=== PATIENT | female | born 1985 | race Caucasian/White ===

== ENCOUNTER 2017-05-03 05:55 | Inpatient (IN) | payer OTHER ==
[~2017-05-03] VITALS: Ht 165.1 cm; Wt 75.3 kg
[~2017-05-03 05:55] MED LIST: PNV1TABL54 PO; RINGERS SOLUTION,LACTATED 1,000 ML IV ONE
[2017-05-03] MEDS ORDERED: CITRIC ACID/SODIUM CITRATE 30 ML SOLUTION UDCUP PO ONE (06:00)
[2017-05-03] MEDS ORDERED: METOCLOPRAMIDE HCL 5 MG/ML 2 ML VIAL IVP ONE (06:00)
[2017-05-03 06:27] LABS: BASOPHILS # (AUTO) 0.02 K/uL (0.00-0.20); BASOPHILS % (AUTO) 0.2 % (0.0-2.0); EOSINOPHILS # (AUTO) 0.04 K/uL (0.00-0.70); EOSINOPHILS % (AUTO) 0.41 % (1.0-6.0); HEMOGLOBIN 12.3 g/dL (12.0-16.0); LYMPHOCYTES # (AUTO) 1.8 K/uL (1.0-4.8); LYMPHOCYTES % (AUTO) 20.9 % (22.0-44.0); MEAN CORPUSCULAR HEMOGLOBIN 32.6 pg (26.0-34.0); MEAN CORPUSCULAR HGB CONC 34.2 G/dL (31.0-37.0); MEAN CORPUSCULAR VOLUME 95 fL (80-100); MONOCYTES # (AUTO) 0.6 K/uL (0.1-1.0); NEUTROPHILS # (AUTO) 6.3 K/uL (1.8-7.7); NEUTROPHILS % (AUTO) 71.5 % (40.0-70.0); PLATELET COUNT (AUTO) 170 K/uL (150-450); RED BLOOD CELL COUNT(AUTO) 3.78 MIL/uL (4.00-5.20); RED CELL DISTRIBUTION WIDTH 13.3 % (11.5-14.5); WHITE BLOOD COUNT (AUTO) 8.8 K/uL (4.5-11.0)
[2017-05-03 06:55] VITALS: BP 136/88
[2017-05-03] MEDS ORDERED: CeFAZolin 2 GM/DEXTROSE 50 ML IV ONE (07:01)
[2017-05-03] MEDS ORDERED: MORPHINE SULFATE/PF 1 MG/ML 10 ML AMP ONE (07:02)
[2017-05-03] MEDS ORDERED: FentaNYL CITRATE-PF 100 MCG/2 ML VIAL ONE (07:02)
[2017-05-03 07:22] LABS: GLUCOSE,POINT OF CARE 79 MG/DL (70-110)
[2017-05-03] MEDS ORDERED: GUM MASTIC/STORAX/MSAL/ALCOHOL LIQUID 0.67 ML VIAL TP ONE (08:42)
[2017-05-03] MEDS ORDERED: ONDANSETRON HCL 4 MG/2 ML VIAL IVP PRN ×2 (08:45→09:15)
[2017-05-03] MEDS ORDERED: DEXAMETHASONE SOD PHOS 4 MG/ML VIAL IVP PRN (08:45)
[2017-05-03] MEDS ORDERED: MEPERIDINE-PF 25 MG/ML SYRINGE IVP PRN (08:45)
[2017-05-03] MEDS ORDERED: NALBUPHINE HCL 10 MG/ML VIAL IVP PRN (08:45)
[2017-05-03] MEDS ORDERED: PROMETHAZINE HCL 12.5 MG in SODIUM CHLORIDE 0.9% 50 ML IV PRN (08:45)
[2017-05-03] MEDS ORDERED: FentaNYL CITRATE-PF 100 MCG/2 ML VIAL IVP PRN ×3 (09:15)
[2017-05-03] MEDS ORDERED: NALOXONE HCL 0.4 MG/ML VIAL IVP PRN (09:15)
[2017-05-03] MEDS ORDERED: DiphenhydrAMINE HCL 50 MG/ML VIAL IVP PRN (09:15)
[2017-05-03] MEDS ORDERED: MISOPROSTOL 100 MCG TABLET ONE (09:21)
[2017-05-03] MEDS ORDERED: MISOPROSTOL 100 MCG TABLET PR ONE (09:30)
[2017-05-03] MEDS ORDERED: KETOROLAC TROMETHAMINE 30 MG/ML VIAL IVP ONE (11:00)
[2017-05-03] MEDS ORDERED: OXYTOCIN 30 UNITS/LACT RINGERS 500 ML IV ONE (12:04)
[2017-05-03] MEDS: RINGERS SOLUTION,LACTATED 1,000 ML IV SCH ×2 (12:04→20:08)
[2017-05-03] MEDS ORDERED: LANOLIN 7 GM OINTMENT TP PRN (12:15)
[2017-05-03] MEDS ORDERED: OxyCODONE HCL/ACETAMINOPHEN 5-325 MG TABLET PO PRN (12:15)
[2017-05-03] MEDS ORDERED: METHYLERGONOVINE MALEATE 0.2 MG/ML VIAL ONE (14:59)
[2017-05-03] MEDS: KETOROLAC TROMETHAMINE 30 MG/ML VIAL IVP SCH (17:22)
[2017-05-03] MEDS: NALBUPHINE HCL 10 MG/ML VIAL IVP SCH (17:22)
[2017-05-03] MEDS: MAGNESIUM HYDROXIDE SUSPENSION 30 ML UDCUP PO SCH (22:08)
[2017-05-03] MEDS: OxyCODONE HCL/ACETAMINOPHEN 5-325 MG TABLET PO PRN (22:37)
[2017-05-04] MEDS: KETOROLAC TROMETHAMINE 30 MG/ML VIAL IVP SCH
[2017-05-04] MEDS: NALBUPHINE HCL 10 MG/ML VIAL IVP SCH ×2 (05:26)
[2017-05-04] MEDS: OxyCODONE HCL/ACETAMINOPHEN 5-325 MG TABLET PO PRN ×2 (05:43→17:47)
[2017-05-04 05:59] LABS: BASOPHILS # (AUTO) 0.02 K/uL (0.00-0.20); BASOPHILS % (AUTO) 0.2 % (0.0-2.0); EOSINOPHILS # (AUTO) 0.02 K/uL (0.00-0.70); EOSINOPHILS % (AUTO) 0.22 % (1.0-6.0); HEMATOCRIT 23.4 % (36-46); HEMOGLOBIN 8.1 g/dL (12.0-16.0); LYMPHOCYTES # (AUTO) 1.6 K/uL (1.0-4.8); LYMPHOCYTES % (AUTO) 15.7 % (22.0-44.0); MEAN CORPUSCULAR HEMOGLOBIN 32.4 pg (26.0-34.0); MEAN CORPUSCULAR HGB CONC 34.4 G/dL (31.0-37.0); MEAN CORPUSCULAR VOLUME 94 fL (80-100); MONOCYTES # (AUTO) 0.6 K/uL (0.1-1.0); MONOCYTES % (AUTO) 6.1 % (2.0-9.0); NEUTROPHILS % (AUTO) 77.8 % (40.0-70.0); RED BLOOD CELL COUNT(AUTO) 2.49 MIL/uL (4.00-5.20); RED CELL DISTRIBUTION WIDTH 13.7 % (11.5-14.5); WHITE BLOOD COUNT (AUTO) 10.3 K/uL (4.5-11.0)
[2017-05-04] MEDS: MAGNESIUM HYDROXIDE SUSPENSION 30 ML UDCUP PO SCH ×2 (08:51→21:10)
[2017-05-04] MEDS: IBUPROFEN 800 MG TABLET PO PRN ×2 (08:52→16:08)
[2017-05-05] MEDS: OxyCODONE HCL/ACETAMINOPHEN 5-325 MG TABLET PO PRN ×2 (00:30→13:46)
[2017-05-05] MEDS: IBUPROFEN 800 MG TABLET PO PRN (08:23)
[2017-05-05] MEDS: MAGNESIUM HYDROXIDE SUSPENSION 30 ML UDCUP PO SCH (08:23)
[2017-05-05] MEDS ORDERED: PERCT PO (17:13)
[2017-05-05] MEDS ORDERED: FERR-89 PO (17:14)
[2017-05-05] MEDS ORDERED: IBUP-2070 PO (17:14)
[2017-05-05] MEDS ORDERED: DSS100 PO (17:15)
[2017-05-05] MEDS ORDERED: EPHEDrine SULFATE 50 MG/ML VIAL IVP ONE (18:29)
[2017-05-05] MEDS ORDERED: OXYTOCIN 10 UNITS/ML VIAL IM ONE (18:29)
[2017-05-05] MEDS ORDERED: LIDOCAINE HCL/PF 2% 5 ML VIAL INJ ONE (18:29)
== END 2017-05-05 18:30 | disposition home or self-care (01) | DRG 766 ==
LOC: 4S 05:55 → PREOBSVTOIN 07-01 06:01
PROVIDERS: ADMIT Obstetrics & Gynecology; ATTEND Obstetrics & Gynecology
PROC: 10D00Z1 Extraction of Products of Conception, Low, Open Approach (ICD-10-PCS; principal; 2017-05-03)
PROC: 0UL70ZZ Occlusion of Bilateral Fallopian Tubes, Open Approach (ICD-10-PCS; 2017-05-03)
DX: O24.429 Gestational diabetes mellitus in childbirth, unspecified control (principal); Z37.0 Single live birth; O34.211 Maternal care for low transverse scar from previous cesarean delivery; Z3A.39 39 weeks gestation of pregnancy
CPT/HCPCS: 82962; 86850; 86900; 86901; 87081; 88302; J0690; J1885; J2210; J2300; J2590; J2765; J3010; J3490; J7120